=== PATIENT | female | born 1995 | race Caucasian/White ===

== ENCOUNTER 2018-08-31 16:29 | Emergency (ER) | payer BC, OTHER ==
[2018-08-31] MEDS ORDERED: HYDROcodone/APAP 5-325MG 1 EACH TAB PO STA (17:00)
--- NOTE | 2018-08-31 17:34 | XR ---
EXAMINATION TYPE: XR hand complete LT DATE OF EXAM: 08/31/2018 COMPARISON: NONE HISTORY: Fall. Pain. TECHNIQUE: 3 views FINDINGS: There is nondisplaced oblique fracture of the midshaft middle phalanx middle finger left belle nd. There is nondisplaced oblique fracture proximal phalanx ring finger left hand. There is no disloc ation. Joint spaces are normal. IMPRESSION: Fractures of the middle finger and ring finger as above.
[2018-08-31] MEDS ORDERED: MORPHINE SULFATE 4 MG/ML SYRINGE IM STA (17:37)
--- NOTE | 2018-08-31 17:37 | XR ---
EXAMINATION TYPE: XR wrist complete LT DATE OF EXAM: 08/31/2018 COMPARISON: NONE HISTORY: Fall TECHNIQUE: 4 views FINDINGS: Metacarpals appear intact. Carpal bones are intact. Joint spaces are fairly normal. I see n o fracture. IMPRESSION: Negative left wrist exam.
[2018-08-31] MEDS ORDERED: LIDOCAINE 1% INJ 10MG/ML (20 ML MDV) SQ STA (17:54)
--- NOTE | 2018-08-31 18:26 | ED ---
General Adult HPI - General Chief complaint: Extremity Injury, Lower Stated complaint: dislocated finger Time Seen by Provider: 08/31/18 16:54 Source: patient, RN notes reviewed, old records reviewed Mode of arrival: ambulatory Limitations: no limitations - History of Present Illness Initial comments: 22-year-old female patient presents to ED with injury to left hand. Patient ports that she was rollerblading when she fell forward, falling on outstretched arm. Patient reports that she has a deformity in the third digit on her left hand and complains of pain the third as well as fourth digit on the left hand. Patient has an trauma to neck. Patient denies any loss of consciousness. Patient denies any other injury or any other complaint. Pt states that she is not . Systemic: Pt denies fatigue, myalgia, fever/chills, rash. Pt denies weakness, night sweats, weight loss. Neuro: Pt denies headache, visual disturbances, syncope or pre-syncope. HEENT: Pt denies ocular discharge or irritation, otalgia, rhinorrhea, pharyngitis or notable lymphadenopathy. Cardiopulmonary: Pt denies chest pain, SOB, heart palpitations, dyspnea on exertion. Abdominal/GI: Pt denies abdominal pain, n/v/d. : Pt denies dysuria, burning w/ urination, frequency/urgency. Denies new onset urinary or bowel incontinence. MSK: Pt denies myalgia, loss of strength or function in extremities. Neuro: Pt denies new onset weakness, paresthesias. - Related Data Home Medications Medication Instructions Recorded Confirmed Act-Gxfp-Vcqdo Acid 1 tab PO DAILY 09/27/13 09/27/13 [-U Capsule] Allergies Allergy/AdvReac Type Severity Reaction Status Date / Time No Known Allergies Allergy Verified 08/31/18 16:53 Review of Systems ROS Statement: Those systems with pertinent positive or pertinent negative responses have been documented in the HPI. ROS Other: All systems not noted in ROS Statement are negative. Past Medical History Past Medical History: No Reported History History of Any Multi-Drug Resistant Organisms: None Reported Additional Past Surgical History / Comment(s): d+c 2011 Past Anesthesia/Blood Transfusion Reactions: No Reported Reaction Past Psychological History: No Psychological Hx Reported Smoking Status: Former smoker Past Drug Use History: None Reported General Exam - General Exam Comments Initial Comments: Constitutional: NAD, AOX3, Pt has pleasant affect. HEENT: NC/AT, trachea midline, neck supple, no lymphadenopathy. Posterior pharynx non erythematous, without exudates. External ears appear normal, without discharge. Mucous membranes moist. Eyes PERRLA, EOM intact. There is no scleral icterus. No pallor noted. Cardiopulmonary: RRR, no murmurs, rubs or gallops, no JVD noted. Lungs CTAB in anterior and posterior wiley. No peripheral edema. Abdominal exam: Abdomen soft and non-distended. Abdomen non-tender to palpation in all 4 quadrants. Bowel sounds active in LLQ. No hepatosplenomegaly. No ecchymosis Neuro: CN II-XII grossly intact. No nuchal rigidity. MSK: Tenderness to palpation at mid shaft left third digit and proximal left fourth digit. Mild deformity noted at middle phalanx of third digit left hand. Capillary refill less than 2 seconds of all digits. Sensation intact. Third finger fracture reduced, pt tolerated procedure well. No posterior calf tenderness bilaterally, homans sign negative bilaterally. Posterior tibialis and radial pulse +2 bilaterally. Sensation intact in upper and lower extremities. Full active ROM in upper and lower extremities, 5/5 stregnth. Limitations: no limitations Course Vital Signs 08/31/18 16:50 Temperature 98.3 F Pulse Rate 68 Respiratory 20 Rate Blood Pressure 121/72 O2 Sat by Pulse 99 Oximetry Medical Decision Making - Medical Decision Making 22-year-old female patient presents to ED with injury to left hand. Patient ports that she was rollerblading when she fell forward, falling on outstretched arm. Patient reports that she has a deformity in the third digit on her left hand and complains of pain the third as well as fourth digit on the left hand. Patient has an trauma to neck. Patient denies any loss of consciousness. Skyler gonzales denies any other injury or any other complaint. Pt states that she is not . Patient vital signs stable, afebrile. Physical exam displayed: Tenderness to palpation at mid shaft left third digit and proximal left fourth digit. Mild deformity noted at middle phalanx of third digit left hand. Capillary refill less than 2 seconds of all digits. Sensation intact. Third finger fracture reduced, pt tolerated procedure well. Capillary refill <2 seconds s/p reduction. Plain film of hand displayed a nondisplaced oblique fracture of the midshaft middle phalanx left hand, nondisplaced oblique fracture proximal phalanx fourth digit left hand. No dislocation. Fracture reduced and patient placed in a straight finger splint on third and fourth digit. Patient will be discharged. Patient will follow up with orthopedic consult tomorrow. Patient return to ER if condition worsens in any way. Case discussed with Dr. Talavera. Disposition Clinical Impression: Finger fracture Disposition: HOME SELF-CARE Condition: Stable Instructions (If sedation given, give patient instructions): Finger Fracture (ED) Additional Instructions: Patient to adhere to previously discussed treatment plan and will take medication(s) as directed. Patient to follow up with PCP in 1-2 days. Patient to return to ED if symptoms do not improve. Wear splint until follow-up with orthopedic surgeon. Return to ER if condition worsens in any way. Is patient prescribed a controlled substance at d/c from ED?: No Referrals: None,Stated [Primary Care Provider] - 1-2 days Antonio Ba, DO [Medical Doctor] - 1-2 days
--- NOTE | 2018-08-31 19:00 | XR ---
EXAMINATION TYPE: XR hand complete LT DATE OF EXAM: 08/31/2018 COMPARISON: Today HISTORY: Post reduction TECHNIQUE: 3 views. FINDINGS: There are oblique fractures mid shaft of the middle phalanx middle finger left hand and also proximal phalanx of the ring finger left hand. Fracture lines are still visible. There is no significant disp lacement. There is slightly improved alignment of the middle finger fracture compared to the first ex am. IMPRESSION: Satisfactory reduction. No complicating process seen.
[2018-08-31] MEDS ORDERED: ACET/COD 300 MG/30 MG STARTER PACK 6 TAB BTL PO STA (19:09)
[2018-08-31 19:44] VITALS: BP 120/75; PULSE 67; RESP 16; TEMP 98.5
--- NOTE | 2018-09-01 07:34 | CDI ---
Documentation Clarification OP Dear Carson BARTLETT, PAC Please do the addendum for reduction procedure. Thank you, Mallorie Sheikh Bolt Machine Operator If you have any question, Please contact manufacturing quality manager at [phone] [facility]
--- NOTE | 2018-09-21 14:14 | ED ---
Medical Decision Making - Medical Decision Making Tenderness to palpation at mid shaft left third digit and proximal left fourth digit. Mild deformity noted at middle phalanx of third digit left hand. Capillary refill less than 2 seconds of all digits. Sensation intact. Third finger fracture reduced, pt tolerated procedure well. No posterior calf tenderness bilaterally, homans sign negative bilaterally. Posterior tibialis and radial pulse +2 bilaterally. Sensation intact in upper and lower extremities. Full active ROM in upper and lower extremities, 5/5 stregnth. Disposition Clinical Impression: Finger fracture Disposition: HOME SELF-CARE Condition: Stable Instructions (If sedation given, give patient instructions): Finger Fracture (ED) Additional Instructions: Patient to adhere to previously discussed treatment plan and will take medication(s) as directed. Patient to follow up with PCP in 1-2 days. Patient to return to ED if symptoms do not improve. Wear splint until follow-up with orthopedic surgeon. Return to ER if condition worsens in any way. Is patient prescribed a controlled substance at d/c from ED?: No Referrals: Antonio Ba DO [Medical Doctor] - 1-2 days None,Stated [Primary Care Provider] - 1-2 days Procedures - Orthopedic Fracture Reduction Fracture #1 Consent Obtained: verbal consent Side: left Fracture Reduction Location: other (third digit) Analgesia: digital block Technique: direct manipulation Post Reduction X-rays Demonstrate: anatomical reduction Post-Reduction Neuro Exam: intact Post-Reduction Vascular Exam: intact Splint Applied: Yes Patient Tolerated Procedure: well
== END 2018-08-31 19:44 | disposition home or self-care (01) ==
LOC: EC 16:29
DX: S62.653A Nondisplaced fracture of middle phalanx of left middle finger, initial encounter for closed fracture (principal); S62.645A Nondisplaced fracture of proximal phalanx of left ring finger, initial encounter for closed fracture; Z87.891 Personal history of nicotine dependence; W19.XXXA Unspecified fall, initial encounter; Y93.89 Activity, other specified; Y92.009 Unspecified place in unspecified non-institutional (private) residence as the place of occurrence of the external cause
CPT/HCPCS: 73110; 73130; 99284; 26725; 96372; J2270; J2001

== ENCOUNTER 2018-10-18 17:37 | Emergency (ER) | payer BC ==
[2018-10-18 17:45] VITALS: RESP 18
[2018-10-18] MEDS ORDERED: SODIUM CHLORIDE 0.9% 1,000 ML IV STA ×2 (18:16→19:02)
[2018-10-18] MEDS ORDERED: ACETAMINOPHEN TAB 325 MG TAB PO STA (18:16)
[2018-10-18] MEDS ORDERED: MORPHINE SULFATE 4 MG/ML SYRINGE IV STA (18:16)
--- NOTE | 2018-10-18 18:20 | ED ---
General Adult HPI - General Source: patient, RN notes reviewed Mode of arrival: ambulatory Limitations: no limitations <Donn Davidson - Last Filed: 10/18/18 20:19> <Fortino Brooke - Last Filed: 10/18/18 21:02> - General Chief complaint: Abdominal Pain Stated complaint: LRQ pain Time Seen by Provider: 10/18/18 17:50 - History of Present Illness Initial comments: 22-year-old female presents to the emergency department for a chief of right lower quadrant pain 2 hours. Patient states she has had body aches and chills for the past 2 days. She states that 2 hours ago she started to have right lower quadrant pain that is very painful and sharp. Denies cough congestion sore throat. Denies any nausea vomiting. Denies diarrhea. States she is a history of constipation since last time she went to the after. Denies any dysuria. Denies any chance of . Denies any recent fevers.Patient has no other complaints at this time including shortness of breath, chest pain, nausea or vomiting, headache, or visual changes. (Donn Davidson) - Related Data Previous Rx's Medication Instructions Recorded HYDROcodone/APAP 5-325MG [Vanderwagen 1 tab PO Q6HR PRN #10 tab 10/18/18 5-325] Levofloxacin [Levaquin] 750 mg PO DAILY 7 Days #7 tab 10/18/18 Ondansetron [Zofran ODT] 4 mg PO Q8HR PRN #15 tab 10/18/18 Tamsulosin [Flomax] 0.4 mg PO DAILY #7 cap 10/18/18 Allergies Allergy/AdvReac Type Severity Reaction Status Date / Time No Known Allergies Allergy Verified 10/18/18 18:38 Review of Systems ROS Other: All systems not noted in ROS Statement are negative. <Donn Davidson - Last Filed: 10/18/18 20:19> ROS Other: All systems not noted in ROS Statement are negative. <Fortino Brooke - Last Filed: 10/18/18 21:02> ROS Statement: Those systems with pertinent positive or pertinent negative responses have been documented in the HPI. Past Medical History Past Medical History: No Reported History History of Any Multi-Drug Resistant Organisms: None Reported Additional Past Surgical History / Comment(s): d+c 2012, left hand Past Anesthesia/Blood Transfusion Reactions: No Reported Reaction Past Psychological History: No Psychological Hx Reported Smoking Status: Former smoker Past Alcohol Use History: Occasional Past Drug Use History: None Reported <Donn Davidson P - Last Filed: 10/18/18 20:19> General Exam Limitations: no limitations General appearance: alert, in no apparent distress Head exam: Present: atraumatic, normocephalic, normal inspection Eye exam: Present: normal appearance, PERRL, EOMI. Absent: scleral icterus, conjunctival injection, periorbital swelling ENT exam: Present: normal exam, mucous membranes moist Neck exam: Present: normal inspection, full ROM. Absent: tenderness, meningismus, lymphadenopathy Respiratory exam: Present: normal lung sounds bilaterally. Absent: respiratory distress, wheezes, rales, rhonchi, stridor Cardiovascular Exam: Present: regular rate, normal rhythm, normal heart sounds. Absent: systolic murmur, diastolic murmur, rubs, gallop, clicks GI/Abdominal exam: Present: soft, tenderness (RLQ tenderness), normal bowel nikia nds. Absent: distended, guarding, rebound, rigid Expanded GI/Abdominal exam: Present: tenderness at McBurney's Point. Absent: psoas sign, obturator sign, heel tap sign, Souza's sign, Rovsing's sign Neurological exam: Present: alert, oriented X3, CN II-XII intact Psychiatric exam: Present: normal affect, normal mood <Donn Davidson P - Last Filed: 10/18/18 20:19> Course Vital Signs 10/18/18 10/18/18 10/18/18 17:42 19:40 20:56 Temperature 99.0 F 102.7 F H 99.2 F Pulse Rate 96 Respiratory 18 Rate Blood Pressure 108/62 O2 Sat by Pulse 100 Oximetry Medical Decision Making - Lab Data Result diagrams: 10/18/18 18:33 10/18/18 18:33 <Donn Davidson P - Last Filed: 10/18/18 20:19> - Lab Data Result diagrams: 10/18/18 18:33 10/18/18 18:33 <Fortino Brooke N - Last Filed: 10/18/18 21:02> - Medical Decision Making 22-year-old female presents to the emergency department for a chief complaint of body aches and chills associated with right lower quadrant pain. Patient states she has had the chills and bodyaches for about 2 days but just started having the right lower quadrant pain prior to arrival. On exam patient does appear to be in pain. Right lower quadrant is under to palpation. Patient also has right CVA tenderness. No left CVA tenderness or tenderness in the left lower quadrant. CBC and CMP is unremarkable. Urine shows greater than 182 red blood cells and white blood cells. HCG is negative. Pelvic exam was performed as well, no pelvic tenderness or abnormal discharge. Trichomonas negative. Gonorrhea and chlamydia pending. CT shows a normal appendix however there is right-sided hydronephrosis and proximal hydroureter. There is also right-sided perinephric edema and periureteral edema. Possible small calculus 2 mm distal right ureter. Patient was given 2 L of fluid as well as 2 g of Rocephin here in the emergency department. She did develop a fever of 102.7, given Motrin and Tylenol. Dr. Brooke also visualized the patient. Dr. Brooke spoke with the urologist. Recommends discharge with outpatient Levaquin and urine straining. Recommended following up with them tomorrow morning. Did have a lengthy discussion with patient about strict return parameters and drinking plenty of fluids. (Donn Davidson) Patient has right-sided pyelonephritis, obstructing stone, [address] Urinalysis consistent with pyelonephritis. Patient initiated on antibiotics awaiting culture. Did discuss case with covering urology Dr. Landeros, recommend Levaquin, strain urine and close outpatient follow-up. Patient will call the urology office in the morning for close follow-up. She will maintain oral hydration at home. She will monitor fever, monitor symptoms. She will return with any worsening or changing symptoms. (Fortino Brooke) - Lab Data Lab Results 10/18/18 10/18/18 10/18/18 Range/Units 18:20 18:20 18:33 WBC (3.8-10.6) k/uL RBC (3.80-5.40) m/uL Hgb (11.4-16.0) gm/dL Hct (34.0-46.0) % MCV (80.0-100.0) fL MCH (25.0-35.0) pg MCHC (31.0-37.0) g/dL RDW (11.5-15.5) % Plt Count (150-450) k/uL Neutrophils % % Lymphocytes % % Monocytes % % Eosinophils % % Basophils % % Neutrophils # (1.3-7.7) k/uL Lymphocytes # (1.0-4.8) k/uL Monocytes # (0-1.0) k/uL Eosinophils # (0-0.7) k/uL Basophils # (0-0.2) k/uL Sodium 138 (137-145) mmol/L Potassium 4.0 (3.5-5.1) mmol/L Chloride 104 (98-107) mmol/L Carbon Dioxide 25 (22-30) mmol/L Anion Gap 9 mmol/L BUN 12 (7-17) mg/dL Creatinine 0.77 (0.52-1.04) mg/dL Est GFR (CKD-EPI)AfAm >90 (>60 ml/min/1.73 sqM) Est GFR (CKD-EPI)NonAf >90 (>60 ml/min/1.73 sqM) Glucose 105 H (74-99) mg/dL Plasma Lactic Acid Ej (0.7-2.0) mmol/L Calcium 9.4 (8.4-10.2) mg/dL Total Bilirubin 1.4 H (0.2-1.3) mg/dL AST 20 (14-36) U/L ALT 7 L (9-52) U/L Alkaline Phosphatase 63 (38-126) U/L Total Protein 7.2 (6.3-8.2) g/dL Albumin 4.4 (3.5-5.0) g/dL Amylase 49 (30-110) U/L Lipase 53 (23-300) U/L Urine Color Yellow Urine Appearance Turbid H (Clear) Urine pH 6.0 (5.0-8.0) Ur Specific Eagle 1.022 (1.001-1.035) Urine Protein 2+ H (Negative) Urine Glucose (UA) Negative (Negative) Urine Ketones 1+ H (Negative) Urine Blood Moderate H (Negative) Urine Nitrite Negative (Negative) Urine Bilirubin Negative (Negative) Urine Urobilinogen 8.0 (<2.0) mg/dL Ur Leukocyte Esterase Large H (Negative) Urine RBC >182 H (0-5) /hpf Urine WBC >182 H (0-5) /hpf Urine WBC Clumps Many H (None) /hpf Ur Squamous Epith Cells 10 H (0-4) /hpf Urine Bacteria Moderate H (None) /hpf Urine Mucus Rare H (None) /hpf Urine HCG, Qual Not Detected (Not Detectd) Trichomonas Ag (Rapid) (Negative) 10/18/18 10/18/18 10/18/18 Range/Units 18:33 18:33 18:36 WBC 9.3 (3.8-10.6) k/uL RBC 3.93 (3.80-5.40) m/uL Hgb 12.2 (11.4-16.0) gm/dL Hct 36.7 (34.0-46.0) % MCV 93.3 (80.0-100.0) fL MCH 31.1 (25.0-35.0) pg MCHC 33.4 (31.0-37.0) g/dL RDW 13.9 (11.5-15.5) % Plt Count 240 (150-450) k/uL Neutrophils % 81 % Lymphocytes % 12 % Monocytes % 5 % Eosinophils % 1 % Basophils % 0 % Neutrophils # 7.5 (1.3-7.7) k/uL Lymphocytes # 1.1 (1.0-4.8) k/uL Monocytes # 0.4 (0-1.0) k/uL Eosinophils # 0.1 (0-0.7) k/uL Basophils # 0.0 (0-0.2) k/uL Sodium (137-145) mmol/L Potassium (3.5-5.1) mmol/L Chloride (98-107) mmol/L Carbon Dioxide (22-30) mmol/L Anion Gap mmol/L BUN (7-17) mg/dL Creatinine (0.52-1.04) mg/dL Est GFR (CKD-EPI)AfAm (>60 ml/min/1.73 sqM) Est GFR (CKD-EPI)NonAf (>60 ml/min/1.73 sqM) Glucose (74-99) mg/dL Plasma Lactic Acid Ej 1.2 (0.7-2.0) mmol/L Calcium (8.4-10.2) mg/dL Total Bilirubin (0.2-1.3) mg/dL AST (14-36) U/L ALT (9-52) U/L Alkaline Phosphatase (38-126) U/L Total Protein (6.3-8.2) g/dL Albumin (3.5-5.0) g/dL Amylase (30-110) U/L Lipase (23-300) U/L Urine Color Urine Appearance (Clear) Urine pH (5.0-8.0) Ur Specific Eagle (1.001-1.035) Urine Protein (Negative) Urine Glucose (UA) (Negative) Urine Ketones (Negative) Urine Blood (Negative) Urine Nitrite (Negative) Urine Bilirubin (Negative) Urine Urobilinogen (<2.0) mg/dL Ur Leukocyte Esterase (Negative) Urine RBC (0-5) /hpf Urine WBC (0-5) /hpf Urine WBC Clumps (None) /hpf Ur Squamous Epith Cells (0-4) /hpf Urine Bacteria (None) /hpf Urine Mucus (None) /hpf Urine HCG, Qual (Not Detectd) Trichomonas Ag (Rapid) Negative (Negative) Disposition Is patient prescribed a controlled substance at d/c from ED?: No Time of Disposition: 20:23 <Donn Davidson P - Last Filed: 10/18/18 20:19> <Fortino Brokoe - Last Filed: 10/18/18 21:02> Clinical Impression: Pyelonephritis, Kidney stone on right side Disposition: HOME SELF-CARE Condition: Good Instructions (If sedation given, give patient instructions): Kidney Stones (ED), Kidney Infection (ED) Additional Instructions: Please take Levaquin as directed. Please take Zofran as needed for nausea. Take Motrin for pain. If pain is severe take Vanderwagen as needed but do not drive or operate machinery while taking Vanderwagen. Take Flomax as well, but do not get while taking Flomax. Call urologist Dr Landeros first thing tomorrow morning because he wants to see you in the office. Make sure to use urine strainer every time you go to the bathroom. Prescriptions: Tamsulosin [Flomax] 0.4 mg PO DAILY #7 cap Levofloxacin [Levaquin] 750 mg PO DAILY 7 Days #7 tab HYDROcodone/APAP 5-325MG [Vanderwagen 5-325] 1 tab PO Q6HR PRN #10 tab PRN Reason: Pain Ondansetron [Zofran ODT] 4 mg PO Q8HR PRN #15 tab PRN Reason: Nausea Referrals: Pavel Landeros MD [STAFF PHYSICIAN] - 1-2 days Ольга Schaffer MD [STAFF PHYSICIAN] - 1-2 days
[2018-10-18 18:39] LABS: Appearance,Urine Turbid (Clear); Bacteria,Urine Moderate /hpf; Bilirubin,Urine Negative (Negative); Blood,Urine Moderate (Negative); Color,Urine Yellow; Glucose,Urine (UA) Negative (Negative); Ketones,Urine 1+ (Negative); Leukocyte Esterase,Urine Large (Negative); Mucus,Urine Rare /hpf; Nitrite,Urine Negative (Negative); Protein,Urine 2+ (Negative); RBC,Urine >182 /hpf (0-5); Specific Gravity,Urine 1.022 (1.001-1.035); Squamous Epithelial Cell,Urine 10 /hpf (0-4); WBC,Urine >182 /hpf (0-5)
[2018-10-18 18:46] LABS: Basophils % (A) 0 %; Eosinophils # (A) 0.1 k/uL (0-0.7); Eosinophils % (A) 1 %; HCT 36.7 % (34.0-46.0); HGB 12.2 gm/dL (11.4-16.0); Lymphocytes # (A) 1.1 k/uL (1.0-4.8); Lymphocytes % (A) 12 %; MCH 31.1 pg (25.0-35.0); MCHC 33.4 g/dL (31.0-37.0); MCV 93.3 fL (80.0-100.0); Monocytes # (A) 0.4 k/uL (0-1.0); Monocytes % (A) 5 %; Neutrophils # (A) 7.5 k/uL (1.3-7.7); Neutrophils % (A) 81 %; Platelet Count 240 k/uL (150-450); RBC 3.93 m/uL (3.80-5.40); RDW 13.9 % (11.5-15.5); WBC 9.3 k/uL (3.8-10.6)
[2018-10-18 18:52] LABS: ALT 7 U/L (9-52); AST 20 U/L (14-36); African American GFR (CKD) >90 (>60 ml/min/1.73 sqM); Albumin 4.4 g/dL (3.5-5.0); Alkaline Phosphatase 63 U/L (38-126); Amylase 49 U/L (30-110); Anion Gap 9 mmol/L; Blood Urea Nitrogen 12 mg/dL (7-17); Calcium 9.4 mg/dL (8.4-10.2); Carbon Dioxide 25 mmol/L (22-30); Chloride 104 mmol/L (98-107); Glucose 105 mg/dL (74-99); Lipase 53 U/L (23-300); Sodium 138 mmol/L (137-145); Total Bilirubin 1.4 mg/dL (0.2-1.3); Total Protein 7.2 g/dL (6.3-8.2)
[2018-10-18] MEDS ORDERED: IBUPROFEN 600 MG TAB PO STA (19:41)
--- NOTE | 2018-10-18 19:42 | CT ---
EXAMINATION TYPE: CT abdomen pelvis w con DATE OF EXAM: 10/18/2018 COMPARISON: 11/26/2001 HISTORY: RLQ pain CT DLP: 629.2 mGycm Automated exposure control for dose reduction was used. TECHNIQUE: Helical acquisition of images was performed from the lung bases through the pelvis. CONTRAST: Performed without Oral Contrast and with IV Contrast, patient injected with 100 mL of Isovue 300. FINDINGS: Lung bases are clear. There is no pleural effusion. Heart size is normal. There is no pericardial eff usion. Liver spleen stomach pancreas gallbladder appear normal. Bile ducts are not dilated. There is no adrenal mass. Kidneys have normal size. There is right-sided hydronephrosis. There is del ayed contrast in the right renal collecting system. There is mild right side perinephric edema. There is a 2 mm calcification in the pelvis on the right side that could be in the distal right ureter. Th ere is mild right-sided periureteral edema. There is mild free fluid in the cul-de-sac. There is decr eased cortical enhancement posterior right kidney. There is no evidence of a renal mass. Uterus is an teverted. Uterus has normal size. There is no retroperitoneal adenopathy. Bladder distends smoothly. There is no inguinal hernia. There is no evidence of a bowel obstruction. Appendix appears normal. There is no free air. There is no ascites. Lumbar spine is intact. Bony pelvis is intact. There is no bony destructive process. IMPRESSION: RIGHT-SIDED HYDRONEPHROSIS AND PROXIMAL HYDROURETER. RIGHT SIDE MILD PERINEPHRIC EDEMA AND PERIURETER AL EDEMA. POSSIBLE SMALL CALCULUS DISTAL RIGHT URETER. DECREASED CORTICAL ENHANCEMENT POSTERIOR RIGHT KIDNEY COULD RELATE TO PYELONEPHRITIS. NORMAL APPENDIX. MILD FREE FLUID IN THE PELVIS.
--- NOTE | 2018-10-18 20:55 | XR ---
EXAMINATION TYPE: XR KUB DATE OF EXAM: 10/18/2018 COMPARISON: CT scan today HISTORY: Right lower quadrant pain TECHNIQUE: Single view FINDINGS: There is IV contrast in both renal collecting systems. Ureters are not dilated. Distal uret er is opacified with contrast bilaterally and appear normal. Bowel gas pattern is normal. There is no sign of intestinal obstruction or pneumoperitoneum. IMPRESSION: There is enlargement of the right renal collecting system compared to the left. There is mild right-sided hydronephrosis. No dilated ureter seen to suggest obstructing calculus. Inflammatory changes seen of the right kidney on the CT scan today are consistent with pyelonephritis .
[2018-10-18 20:58] VITALS: TEMP 99.2
[2018-10-18 21:02] VITALS: BP 106/56; PULSE 75
[2018-10-19 16:10] LABS: C. trachomatis,PCR Negative (Neg,Equiv); Chlamydia trachomatis Source Vagina; N. gonorrhoeae,PCR Negative (Neg,Equiv); Neisseria Source Vagina
== END 2018-10-18 21:02 | disposition home or self-care (01) ==
LOC: EC 17:37
DX: N12 Tubulo-interstitial nephritis, not specified as acute or chronic (principal); N13.2 Hydronephrosis with renal and ureteral calculous obstruction; Z87.891 Personal history of nicotine dependence
CPT/HCPCS: 36415; 80053; 82150; 83605; 83690; 85025; 81001; 81025; 87040; 87808; 87491; 87591; 87086; 74018; 74177; 99284; 96365; 96375; 96361; J2270; J0696; Q9967